=== PATIENT | male | born 1945 | race Caucasian/White ===

== ENCOUNTER 2022-08-05 12:06 | Outpatient (RCR) | payer MEDICARE, SELFPAY ==
--- NOTE | 2022-08-05 13:56 | OTOPEVDC ---
Assessment and note entered by Ginger Tamez, OTR/L Thank you for referring Vladislav Dunham to [facility].? An evaluation has been completed. No further treatment is needed. Evaluation Information Assessment Status Evaluation Diagnosis Spinal Stenosis Lumbar region Onset 2019 Reported Pain Level Pain Score 7: Self Report Assessment OT Clinical Summary Vladislav is unable to perform functional mobility safely and independently for household distances due to his current impairments of decreased endurance, strength, and decreased balance with functional mobility. He is at risk for falls with decreased standing balance contributing to limited ability to perform functional mobility with a walker or cane. Patient demonstrates significant functional mobility limitations that impair their ability to safely participate in mobility-related activities of daily living (MRADL?s). These limitations cannot be sufficiently resolved by the use of an appropriated fitted cane, walker or manual wheelchair. Please see scanned w/c evaluation report for more details. This is to notify provider that Vladislav Dunham participated in a manual mobility device evaluation today. Recommendations were made specific to patient's needs. Seating Assessment documentation has been completed for detailed information on required equipment. Please note that no further care plan will be developed on this account. Plan of Care OT Services Indicated No
== END 2022-08-05 15:19 | disposition home or self-care (01) ==
LOC: ANHOT 12:06
PROVIDERS: PCP Internal Medicine; Visit Provider Internal Medicine
DX: M48.061 Spinal stenosis, lumbar region without neurogenic claudication (principal)
CPT/HCPCS: 97165